=== PATIENT | male | born 1995 | race Caucasian/White ===

== ENCOUNTER 2024-02-22 20:24 | Observation (INO) | payer OTHER, SELFPAY ==
[2024-02-22 20:33] VITALS: BP 129/83; PULSE 92; RESP 16; TEMP 37; O2SAT 97; BMI 25.8
--- NOTE | 2024-02-22 21:36 | ED.ABDPAIN ---
HPI - Abdominal Pain General Time Seen by Provider: 21:42 Date Seen: 02/22/24 Chief Complaint: Abdominal Pain Stated Complaint: abdominal pain Time Seen by Provider: 02/22/24 21:36 Source: patient, family, RN notes reviewed and old records reviewed Mode of arrival: ambulatory Limitations: no limitations History of Present Illness HPI narrative: 28-year-old male who presents today with abdominal pain and diarrhea. Says he started feeling poorly 6 days ago with nausea and fatigue, 4 days ago developed diarrhea, took 1 0 any and then. Has continued to have diarrhea since then, as well as decreased appetite. Denies fever, reports generalized abdominal pain, denies cough, shortness of breath, sinus congestion. No known ill contacts. No blood in the stools. No history of irritable bowel syndrome or inflammatory bowel disorders. Related Data Home Medications ?Medication ?Instructions ?Recorded ?Confirmed No Known Home Medications 02/22/24 02/22/24 Allergies Allergy/AdvReac Type Severity Reaction Status Date / Time No Known Drug Allergies Allergy Verified 02/22/24 22:45 Exam Narrative: Exam Narrative: General: Well-developed and well-nourished, no acute distress Head: Atraumatic and normocephalic Eyes: Pupils are equal reactive, extraocular motions intact, conjunctiva clear ENT: External nose and ears are normal, posterior pharynx without erythema or exudate Neck: No midline cervical tenderness, full spontaneous range of motion the neck, trachea midline, no adenopathy Heart: Regular rate and rhythm no murmurs or thrills Lungs: Clear to auscultation bilaterally without wheezes or crackles Abdomen: Soft, nontender, nondistended with active bowel sounds Musculoskeletal: No tenderness, deformity, or edema Neurologic: Awake, alert, and oriented x3, no gross focal neurologic deficits, cranial nerves intact as tested Psych: Mood and affect are appropriate Skin: No rashes Const: Vital Signs, click to edit/add: Vital Signs - 24 hr 02/22/24 20:33 Temperature 98.6 F Pulse Rate [Pulse Oximeter] 92 Respiratory Rate 16 Blood Pressure [Ri ght Upper Arm] 129/83 Pulse Oximetry 97 Oxygen Delivery Me thod Room Air Course Course ED Course: Reviewed prior urgent care visit from May 2022 which was for bilateral cerumen impaction. Patient presents today with reported diarrhea as well as decreased appetite, no vomiting, no known ill contacts. No upper respiratory symptoms like cough or runny nose, no sore throat. Denies urinary symptoms. No blood in the stool. On exam patient is finally stable with no abdominal tenderness, specifically no right lower quadrant tenderness. Labs are ordered, fluids, Zofran, Toradol will be given and anticipate discharge. Consider CT scan abdomen pelvis or right upper quad ultrasound depending on lab results and clinical course. Reevaluation(s) Time of Reevaluation #1: 22:49 Reevaluation #1: Labs ordered and independently interpreted by me with leukocytosis, normal basic metabolic panel, normal hepatic panel, negative CRP, normal lipase. Because of the elevated white blood cell count abdominal pain, CT scan of the abdomen pelvis was ordered. This demonstrates a normal-appearing appendix, no acute infectious or inflammatory findings. Patient will be discharged with anticipatory instructions, Imodium as needed for diarrhea, and follow-up as needed. Patient was unable to produce a stool sample while in the emergency department. Time of Reevaluation #2: 23:21 Reevaluation #2: Reviewed radiology interpretation CT scan which agrees with my initial interpretation of enteritis with addition of 3 areas of enteroenteric intussusception with likely lymph node lead points. Discussed with Dr. Subramanian, general surgery. produce assistant back, she recommends keeping patient NPO, admit to hospitalist service and repeat labs in the morning. Will add lactate tonight. Time of Reevaluation #3: 00:43 Reevaluation #3: Delay in care due to critical patient in the department. Lactate 0.8, patient remains stable and could be admitted. 1:13 AM Repaged Horizon. Vital Signs Vital signs: Initial Vital Signs Temperature 98.6 F 02/22/24 20:33 Temperature Source Temporal Artery Scan 02/22/24 20:33 Pulse Rate 92 02/22/24 20:33 Respiratory Rate 16 02/22/24 20:33 Blood Pressure 129/83 02/22/24 20:33 Blood Pressure Mean 98 02/22/24 20:33 Blood Pressure Position Sitting 02/22/24 20:33 Pulse Oximetry 97 02/22/24 20:33 Oxygen Delivery Method Room Air 02/22/24 20:33 Vital Signs Temperature 98.6 F 02/22/24 20:33 Pulse Rate 92 02/22/24 20:33 Respiratory Rate 16 02/22/24 20:33 Blood Pressure 129/83 02/22/24 20:33 Pulse Oximetry 97 02/22/24 20:33 Oxygen Delivery Method Room Air 02/22/24 20:33 Temperature 98.6 F 02/22/24 20:33 Pulse Rate 92 02/22/24 20:33 Respiratory Rate 16 02/22/24 20:33 Blood Pressure 129/83 02/22/24 20:33 Pulse Oximetry 97 02/22/24 20:33 Oxygen Delivery Method Room Air 02/22/24 20:33 Medications Administered Medications: Discontinued Medications Generic Name Dose Route Start Last Admin Trade Name Freq PRN Reason Stop Dose Admin Sodium Chloride 1,000 mls @ 1,000 mls/hr 02/22/24 21:45 02/23/24 00:27 0.9 % Sodium Chloride 1000 Ml IV 02/22/24 22:44 Infused .Q1H BRETT Infusion Ketorolac Tromethamine 15 mg 02/22/24 21:44 02/22/24 22:00 Ketorolac 15 Mg/Ml Inj IVP 02/22/24 21:45 15 mg ONCE ONE Administration MDM - Abdominal Pain Lab Data Labs: Lab Results 02/22/24 02/22/24 Range/Units 00:35 21:50 WBC 14.46 H (4.50-11.00) K/uL RBC 5.33 (4.30-5.90) m/uL Hgb 15.3 (13.5-17.5) gm/dL Hct 43.1 (37.0-53.0) % MCV 81 (80-100) fL MCH 29 (26-34) pg MCHC 36 (32-36) gm/dL RDW Coeff of Caro 12.5 (11.5-15.5) % Plt Count 243 (140-440) K/uL Neut % (Auto) 78.1 H (42.0-72.0) % Lymph % (Auto) 13.6 L (20-44) % [place] % (Auto) 5.7 (0.0-11.0) % Eos % (Auto) 1.5 (0.0-7.0) % Baso % (Auto) 0.3 (0.0-3.0) % Neut # (Auto) 11.30 H (1.7-7.0) K/uL Lymph # (Auto) 2.00 (0.90-2.90) K/uL [place] # (Auto) 0.80 (0.00-0.90) K/UL Eos # (Auto) 0.20 (0.00-0.50) K/uL Baso # (Auto) 0.00 (0.00-0.30) K/uL Abs Immat Gran (auto) 0.10 (0.00-0.30) K/uL Imm/Tot Granulo (auto) 0.8 % Sodium 136 (135-149) mmol/L Potassium 3.7 (3.6-5.1) mmol/L Chloride 101 (96-114) mmol/L Carbon Dioxide 29 (20-32) mmol/L Anion Gap 6 L (7-15) mEq/L BUN 10 (5-24) mg/dL Creatinine 1.0 (0.5-1.5) mg/dL Estimated Creat Clear 122.87 Estimated GFR 106 ml/min Glucose 98 (60-115) mg/dL Lactate 0.8 (0.5-1.9) mmol/L Calcium 9.2 (8.4-10.6) mg/dL Total Bilirubin 1.4 (0.1-1.5) mg/dL Direct Bilirubin 0.2 (0.0-0.5) mg/dL AST 23 (12-35) U/L ALT 21 (4-50) U/L Alkaline Phosphatase 68 (40-150) U/L C-Reactive Protein < 0.5 L (0.5-1.0) mg/dL Total Protein 7.0 (6.0-8.3) g/dL Albumin 4.5 (3.3-5.0) g/dL Lipase 39 (23-300) U/L Discharge Plan Discharge Clinical Impression: Enteritis, Enteric intussusception Patient Disposition: Admitted As Observation Condition: Stable
[2024-02-22] MEDS: KETOROLAC 15 MG/ML inj IVP (22:00)
[2024-02-22] MEDS: 0.9 % SODIUM CHLORIDE 1000 ml 1,000 ML IV (22:00)
[2024-02-22 22:08] LABS: Basophils Percent Auto 0.3 % (0.0-3.0); Eosinophils Percent Auto 1.5 % (0.0-7.0); Hematocrit 43.1 % (37.0-53.0); Hemoglobin* 15.3 gm/dL (13.5-17.5); Immature Granulocytes Pct Auto 0.8 %; Lymphocytes Percent Auto 13.6 % (20-44); Mean Corpuscular HGB Conc 36 gm/dL (32-36); Mean Corpuscular Hemoglobin 29 pg (26-34); Mean Corpuscular Volume 81 fL (80-100); Monocytes Percent Auto 5.7 % (0.0-11.0); Neutrophils Percent Auto 78.1 % (42.0-72.0); Platelet Count* 243 K/uL (140-440); RDW Coefficient of Variation % 12.5 % (11.5-15.5); Red Blood Count 5.33 m/uL (4.30-5.90); White Blood Count* 14.46 K/uL (4.50-11.00)
[2024-02-22 22:10] LABS: Slide Review Reflex No
[2024-02-22 22:13] LABS: Albumin* 4.5 g/dL (3.3-5.0); Chloride* 101 mmol/L (96-114)
--- NOTE | 2024-02-22 22:13 | CRLHL7_ITS ---
For Patients: As a result of the 21st Century Cures Act, medical imaging exams and procedure reports are released immediately into your electronic medical record. You may view this report before your referring provider. If you have questions, please contact your health care provider. INDICATION: Abdominal pain, diarrhea, leukocytosis. TECHNIQUE: CT of the abdomen and pelvis acquired with 93 cc Isovue 370 IV contrast. Coronal and sagittal reconstructions. COMPARISON: None. FINDINGS: The liver, gallbladder, spleen, pancreas, and adrenal glands are negative. No biliary dilation. Hepatic and portal veins are patent. Symmetric enhancement of the kidneys. No hydronephrosis. Mildly prominent bilateral extrarenal pelves without ureteral dilation or obstructing urinary calculi. Mild circumferential bladder wall thickening. Nonenlarged prostate gland. No small bowel dilation. There are three separate segments of enteroenteric intussusception in the left abdomen (series 4 image 47). No obvious lead point mass. There is mild wall thickening of multiple distal small bowel loops, as well as more prominent wall thickening and mucosal hyperenhancement of a 5 cm segment of terminal ileum leading up to the ileocecal valve. Fluid in the proximal colon which can be seen with diarrhea. Negative appendix. No intraperitoneal free air or fluid. Numerous prominent mesenteric lymph nodes are likely reactive. The lung bases are clear. The bones are unremarkable. IMPRESSION: 1. Findings suggestive of a nonspecific enteritis, with prominent wall thickening of the terminal ileum. Consider outpatient GI consult to exclude underlying inflammatory bowel disease. 2. Three separate segments of enteroenteric intussusception in the left abdomen likely secondary to prominent mesenteric lymph nodes. 3. Fluid-filled proximal colon which can be seen with diarrhea. Please note that all CT scans at this facility use dose modulation, iterative reconstruction, and/or weight-based dosing when appropriate to reduce radiation dose to as low as reasonably achievable. Dictated by Ailin Perez MD @ 02/22/2024 11:15:44 PM (Electronically Signed)
[2024-02-22 22:14] LABS: Potassium* 3.7 mmol/L (3.6-5.1); Sodium* 136 mmol/L (135-149)
[2024-02-22 22:16] LABS: Est. Creatinine Clearance* 122.87; Estimated Glomerular Filt Rate 106 ml/min
[2024-02-22 22:17] LABS: Alanine Aminotransferase* 21 U/L (4-50); Alkaline Phosphatase* 68 U/L (40-150); Anion Gap 6 mEq/L (7-15); Aspartate Amino Transferase* 23 U/L (12-35); Bilirubin Direct* 0.2 mg/dL (0.0-0.5); Bilirubin Total* 1.4 mg/dL (0.1-1.5); Blood Urea Nitrogen* 10 mg/dL (5-24); Calcium* 9.2 mg/dL (8.4-10.6); Carbon Dioxide* 29 mmol/L (20-32); Glucose* 98 mg/dL (60-115); Lipase* 39 U/L (23-300)
[2024-02-22 22:43] LABS: C Reactive Protein* < 0.5 mg/dL (0.5-1.0)
[2024-02-23] VITALS (8 sets, daily range): BP systolic 95–121; BP diastolic 53–76; PULSE 65–86; RESP 16–18; TEMP 36.1–37.6; O2SAT 95–98; BMI 23.4
[2024-02-23 00:39] LABS: Lactate* 0.8 mmol/L (0.5-1.9)
--- NOTE | 2024-02-23 02:43 | W.PM.THH&P_ITS ---
Telehealth- H&P: HPI History of Present Illness Time Seen by Provider: 02:30 Date Seen: 02/23/24 Chief complaint: abdominal pain Narrative: Krishna Ji is seen as an Interactive Telehealth visit. Krishna Ji is a 28 year old male who is a 28-year-old male with no significant past medical history who presents to the hospital with complaints of abdominal pain. He has been experiencing diarrhea illness for 6 days. His 6 days is progressed to the point where he developed abdominal pain earlier today. He did not have any bloody diarrhea. He denies any nausea or vomiting. Patient then presented to the emergency room where he underwent laboratory evaluation. He was noted to have elevated white count with a left shift. This patient then subsequently underwent a CT scan of the abdomen which showed enteritis in the terminal ileum as well as areas of intussusception secondary to mesenteric lymphadenopathy. The case was discussed with on-call surgery who recommended hospitalization, IV fluids, n.p.o. and monitor. Review of Systems Status of ROS: Reports: 10 or more systems reviewed and unremarkable except as noted in History and below Const: Denies: fever, chills, change in weight, fatigue or night sweats GI: Reports: abdominal pain and diarrhea; Denies: nausea, vomiting, coffee grounds in vomit, excessive passing of gas or blood in stool Musculo: Denies: back pain Neuro: Denies: headache Psych: Denies: anxiety Endo: Denies: fatigue PFSH PFSH Social History How often do you have a drink containing alcohol: never AUDIT-C Alcohol total score: 0 Non-prescribed substance use: denies use Meds Home Medications and Allergies Home Medications ?Medication ?Instructions ?Recorded ?Confirmed ?Type No Known Home Medications 02/22/24 02/22/24 History Allergies Allergy/AdvReac Type Severity Reaction Status Date / Time No Known Drug Allergies Allergy Verified 02/22/24 22:45 Exam Narrative Exam Narrative: Physical Exam GENERAL: ?vital signs reviewed, well developed and nourished, in no distress HEENT: pupils are equal round and reactive to light, extraocular movements are grossly within normal limits and oral mucosa is moist. NECK: Supple without lymphadenopathy or thyromegaly according to nursing staff examination observation HEART: Regular rate and rhythm without any rubs, murmurs, or gallops. LUNGS: Clear to auscultation bilaterally with good air movement throughout ABDOMEN: Observation from nurse assisted exam, abdomen appears soft, nontender, bowel sounds are present. Patient does have mild tenderness and does have rebound tenderness in the RLQ EXTREMITIES: Strength and sensation is observed to be grossly within normal limits in the upper and lower extremities.? No focal strength deficit is observed. SKIN:? Observed warm and dry with color normal Const Vital Signs, click to edit/add: Vital Signs - 24 hr 02/22/24 20:33 02/23/24 02:00 Temperature 98.6 F 98.4 F Pulse Rate [Pulse Oximeter] 92 86 Respiratory Rate 16 16 Blood Pressure [Right Upper Arm] 129/83 121/76 Pulse Oximetry 97 98 Oxygen Delivery Method Room Air Room Air Common normals: apparent distress Exam limitations: no altered mental status HENMT Common normals: normocephalic Head and scalp: normocephalic Neck & C-Spine Common normals: no JVD Resp Common normals: normal respiratory effort Effort & inspection: able to speak in complete sentences Cardio Common normals: no JVD, regular rate and regular rhythm Rate: regular rate Rhythm: regular rhythm GI Common normals: Normal to inspection, nondistended, normoactive bowel sounds present and soft to palpation Palpation: soft, tender and rebound tenderness present; no guarding Common normals: CVA tenderness present Bladder/kidney exam: CVA tenderness Back & Pelvis Common normals: CVA tenderness Hospitalist - H&P: Result Labs Labs: Short CBC 02/22/24 Range/Units 21:50 WBC 14.46 H (4.50-11.00) K/uL Hgb 15.3 (13.5-17.5) gm/dL Hct 43.1 (37.0-53.0) % Plt Count 243 (140-440) K/uL BMP 02/22/24 21:50 Sodium 136 Potassium 3.7 Chloride 101 Carbon Dioxide 29 BUN 10 Creatinine 1.0 Glucose 98 Calcium 9.2 Liver Function 02/22/24 Range/Units 21:50 Total Bilirubin 1.4 (0.1-1.5) mg/dL Direct Bilirubin 0.2 (0.0-0.5) mg/dL AST 23 (12-35) U/L ALT 21 (4-50) U/L Alkaline Phosphatase 68 (40-150) U/L Albumin 4.5 (3.3-5.0) g/dL Assessment and Plan Assessment and plan (1) Enteric intussusception: Status: Acute (2) Enteritis: Status: Acute Plan 28-year-old male with no significant past medical history who presents to the [facility] with complaints of abdominal pain. He has been experiencing diarrhea illness for 6 days. His 6 days is progressed to the point where he developed abdominal pain earlier today. He did not have any bloody diarrhea. He denies any nausea or vomiting. Patient then presented to the emergency room where he underwent laboratory evaluation. He was noted to have elevated white count with a left shift. This patient then subsequently underwent a CT scan of the abdomen which showed enteritis in the terminal ileum as well as areas of intussusception secondary to mesenteric lymphadenopathy. The case was discussed with on-call surgery who recommended hospitalization, IV fluids, n.p.o. and monitor. Total Time Spent Total Time Spent: 30 minutes Telehealth: Statement Statement Telehealth Visit: Today's History and Physical is provided via interactive telehealth by Dante Presley MD.? Patient is located at [facility].? Provider is located at [facility].? Nursing staff assisted with the patient's exam. The visit being done today meets criteria for a telehealth visit and the patient or patient?s parent/guardian is aware the visit is a telehealth visit. Camera Start Time: 02:30 Camera End Time: 02:45
[2024-02-23] MEDS: 0.9 % SODIUM CHLORIDE 1000 ml 1,000 ML 125 ML IV ×4 (02:46→22:52)
--- NOTE | 2024-02-23 06:37 | PC.NURSE ---
Pt is alert and oriented x3. Pt is calm and receptive to care. Pt denies SOB, CP, nausea, and pain. Pt came in with increased abdominal pain that had started on 02/15. Pt comes from home where he lives with his parents. VSS. Fluids running at 125 mL. Indep. Lung sounds clear to auscultation. Active bowel sounds. S1 and S2 heard. Pt is NPO. NKA. ?
[2024-02-23 08:07] LABS: Basophils Absolute Auto 0.02 K/uL (0.00-0.30); Basophils Percent Auto 0.2 % (0.0-3.0); Eosinophils Absolute Auto 0.12 K/uL (0.00-0.50); Eosinophils Percent Auto 1.2 % (0.0-7.0); Hematocrit 40.3 % (37.0-53.0); Hemoglobin* 14.4 gm/dL (13.5-17.5); Immature Granulocytes Abs Auto 0.01 K/uL (0.00-0.30); Immature Granulocytes Pct Auto 0.1 %; Lymphocytes Percent Auto 14.6 % (20-44); Mean Corpuscular HGB Conc 36 gm/dL (32-36); Mean Corpuscular Hemoglobin 29 pg (26-34); Mean Corpuscular Volume 81 fL (80-100); Monocytes Percent Auto 7.3 % (0.0-11.0); Neutrophils Percent Auto 76.6 % (42.0-72.0); Platelet Count* 210 K/uL (140-440); RDW Coefficient of Variation % 12.5 % (11.5-15.5); Red Blood Count 4.98 m/uL (4.30-5.90); White Blood Count* 9.91 K/uL (4.50-11.00)
[2024-02-23 08:08] LABS: Slide Review Reflex No
[2024-02-23 08:19] LABS: Albumin* 3.8 g/dL (3.3-5.0)
[2024-02-23 08:20] LABS: Chloride* 107 mmol/L (96-114); Potassium* 3.9 mmol/L (3.6-5.1); Sodium* 136 mmol/L (135-149)
[2024-02-23 08:22] LABS: Anion Gap 7 mEq/L (7-15); Aspartate Amino Transferase* 19 U/L (12-35); Bilirubin Total* 1.4 mg/dL (0.1-1.5); Carbon Dioxide* 22 mmol/L (20-32); Creatinine* 0.9 mg/dL (0.5-1.5); Est. Creatinine Clearance* 148.66; Estimated Glomerular Filt Rate 121 ml/min; Total Protein* 6.3 g/dL (6.0-8.3)
[2024-02-23 08:23] LABS: Alanine Aminotransferase* 17 U/L (4-50); Alkaline Phosphatase* 59 U/L (40-150); Blood Urea Nitrogen* 9 mg/dL (5-24); Glucose* 97 mg/dL (60-115)
[2024-02-23 08:24] LABS: Calcium* 8.4 mg/dL (8.4-10.6)
--- NOTE | 2024-02-23 08:37 | PM.GSCN ---
History of Present Illness Consult details Date Seen: 02/23/24 Consult date: 02/23/24 Narrative: Patient presented to the emergency department last night for diffuse abdominal pain and diarrhea. He states that he had a little over a week of just feeling unwell, nausea and decrease in appetite. Four days ago he developed diarrhea. His abdominal pain has been throughout the abdomen and would seem to come and go. Workup was obtained while in the emergency department with leukocytosis (14) and CT scan demonstrating 3 separate areas of small bowel intussusception. There was also evidence of wall thickening and mesenteric lymphadenopathy consistent with an enteritis. He denies any fevers at home. He has never had anything like this before. No previous abdominal surgeries. Since being admitted his pain has improved. He has not had diarrhea since being here. No fevers. He feels like he could eat something this morning. Review of Systems Status of ROS: Reports: 10 or more systems reviewed and unremarkable except as noted in History and below PFSH [facility] Social History What is your current living situation?: I presently have a place to live Problems where you live: declined to answer Problems where you live details: N/A In the past 12 months, utilities in danger of being shut off: no In past 12 months, lack of transportation kept you from medical appts, meetings, work, or getting things needed for daily living: no In the past 12 mos, have been you worried that your food would run out before you had money to buy more?: never true In the past 12 mos, the food you bought just didn't last and you didn't have money to buy more?: never true Highest level of school completed/degree received: Associate degree: occupational, technical, vocational program Smoking Status: Never smoker Second hand tobacco smoke exposure: No How often do you have a drink containing alcohol: 2-3 times a week Alcohol type: beer Alcohol type details: Pt consumes alcohol on the weekends ranging from 5-10 drinks and has occasional 1-2 beers during the week How often do you have six or more drinks on one occasion: Weekly AUDIT-C Alcohol total score: 6 Non-prescribed substance use: denies use Caffeine: No How often does anyone, including family, friends and others, physically hurt you: never How often does anyone, including family, friends and others, insult or talk down to you: never How often does anyone, including family, friends and others, threaten you with harm: never How often does anyone, including family, friends and others, scream or curse at you: never service: No Meds Home Medications and Allergies Home Medications ?Medication ?Instructions ?Recorded ?Confirmed ?Type No Known Home Medications 02/22/24 02/22/24 History Allergies Allergy/AdvReac Type Severity Reaction Status Date / Time No Known Drug Allergies Allergy Verified 02/22/24 22:45 Exam Narrative: Exam Narrative: General: Alert and oriented, no acute distress. Nontoxic Respiratory: Equal breath rise bilaterally, maintained on room air CV: Well perfused Abdomen: Soft, mild tenderness to deep palpation with no guarding or rebound. Const: Vital Signs, click to edit/add: Vital Signs - 24 hr 02/22/24 20:33 02/23/24 02:00 02/23/24 02:26 Temperature 98.6 F 98.4 F 97.3 F L Pulse Rate [Pulse Oximeter] 92 86 85 Respiratory Rate 16 16 16 Blood Pressure [Le ft Arm] 119/68 Blood Pressure [Ri ght Upper Arm] 129/83 121/76 Pulse Oximetry 97 98 95 Oxygen Delivery Me thod Room Air Room Air Room Air 02/23/24 07:59 02/23/24 08:02 Temperature 99.7 F H Pulse Rate [Pulse Oximeter] 77 77 Respiratory Rate 18 18 Blood Pressure [Le ft Arm] 120/68 Blood Pressure [Ri ght Upper Arm] Pulse Oximetry 95 Oxygen Delivery Me thod Room Air Results Labs Labs: Abnormal lab results 02/22/24 02/23/24 Range/Units 21:50 08:00 WBC 14.46 H (4.50-11.00) K/uL Neut % (Auto) 78.1 H 76.6 H (42.0-72.0) % Lymph % (Auto) 13.6 L 14.6 L (20-44) % Neut # (Auto) 11.30 H 7.60 H (1.7-7.0) K/uL Anion Gap 6 L (7-15) mEq/L C-Reactive Protein < 0.5 L (0.5-1.0) mg/dL Diabetes panel 02/22/24 02/23/24 Range/Units 21:50 08:00 Sodium 136 136 (135-149) mmol/L Potassium 3.7 3.9 (3.6-5.1) mmol/L Chloride 101 107 (96-114) mmol/L Carbon Dioxide 29 22 (20-32) mmol/L BUN 10 9 (5-24) mg/dL Creatinine 1.0 0.9 (0.5-1.5) mg/dL Glucose 98 97 (60-115) mg/dL Calcium 9.2 8.4 (8.4-10.6) mg/dL AST 23 19 (12-35) U/L ALT 21 17 (4-50) U/L Alkaline Phosphatase 68 59 (40-150) U/L Total Protein 7.0 6.3 (6.0-8.3) g/dL Albumin 4.5 3.8 (3.3-5.0) g/dL Calcium panel 02/22/24 02/23/24 Range/Units 21:50 08:00 Calcium 9.2 8.4 (8.4-10.6) mg/dL Albumin 4.5 3.8 (3.3-5.0) g/dL Pituitary panel 02/22/24 02/23/24 Range/Units 21:50 08:00 Sodium 136 136 (135-149) mmol/L Potassium 3.7 3.9 (3.6-5.1) mmol/L Chloride 101 107 (96-114) mmol/L Carbon Dioxide 29 22 (20-32) mmol/L BUN 10 9 (5-24) mg/dL Creatinine 1.0 0.9 (0.5-1.5) mg/dL Glucose 98 97 (60-115) mg/dL Calcium 9.2 8.4 (8.4-10.6) mg/dL Adrenal panel 02/22/24 02/23/24 Range/Units 21:50 08:00 Sodium 136 136 (135-149) mmol/L Potassium 3.7 3.9 (3.6-5.1) mmol/L Chloride 101 107 (96-114) mmol/L Carbon Dioxide 29 22 (20-32) mmol/L BUN 10 9 (5-24) mg/dL Creatinine 1.0 0.9 (0.5-1.5) mg/dL Glucose 98 97 (60-115) mg/dL Calcium 9.2 8.4 (8.4-10.6) mg/dL Total Bilirubin 1.4 1.4 (0.1-1.5) mg/dL AST 23 19 (12-35) U/L ALT 21 17 (4-50) U/L Alkaline Phosphatase 68 59 (40-150) U/L Total Protein 7.0 6.3 (6.0-8.3) g/dL Albumin 4.5 3.8 (3.3-5.0) g/dL All other labs normal. Imaging Abdomen CT scan report/results: report reviewed and image reviewed Progress Note:A&P Assessment and plan (1) Enteric intussusception: Status: Acute Assessment and Plan: Patient is an otherwise healthy 28-year-old male who presents with small bowel enteritis. On CT imaging last night 3 separate areas of intussusception with bowel wall thickening and mesenteric lymphadenopathy. All areas of intussusception were present in the left upper quadrant. Recommendations were for observation overnight and re-evaluation in the morning. Patient is reporting improvement in his pain. A benign abdominal exam this morning with vital signs stable. His leukocytosis has resolved. Intussusception unlikely to be persistent given his improvement clinically. Okay for diet. Agree with stool cultures and management per hospitalist. Anticipate discharge later today. Please call with any clinical changes, questions or concerns. (2) Enteritis: Status: Acute
[2024-02-23 13:32] LABS: C.Difficile Negative (Negative); CDIFFEPI 027 PRESUMPTIVE NEGATIVE (Negative)
[2024-02-23] MEDS: LOPERAMIDE HCL 2 MG CAPSULE PO ×3 (14:19→22:52)
--- NOTE | 2024-02-23 14:40 | PM.IMPN1 ---
Progress Note: A&P Assessment and plan (1) Enteric intussusception: Status: Acute (2) Enteritis: Problem details: - improved, still having watery diarrhea - C diff negative, stool culture pending - Imodium, probiotics, bland diet, IV fluids - hemodynamically stable, possibly home tomorrow if continues to improve - appreciate input from General surgery, no surgical needs identified at this time Status: Acute Plan - per above - mom updated at bedside, questions answered Subjective Date Seen: 02/23/24 Interval history: Krishna was admitted to the hospital last night with a 4-5 day history of abdominal pain and nonbloody diarrhea. Admission CT revealed enteritis and 3 areas of intussusception. This morning, white blood count has improved and electrolytes remained stable. Krishna is tolerating broth with minimal nausea. Still having watery diarrhea (had 6-7 episodes between waking up and noon today). No blood in stool. No dizziness or lightheadedness. No medical history. No skin complaints, no arthralgias. No family history of GI illness. Only recent travel was to [place]. Exam Narrative: Exam Narrative: GEN: Alert HEENT: Normal external ears, EOMIs bilaterally, no scleral icterus CV: RRR, No concerning murmurs, rubs, or gallops R: LCTA bilaterally without concerning wheezing, rales, or rhonchi Ab: Soft, nontender, tolerates palpation, hyperactive bowel sounds Ext: wwp, no concerning edema Skin: No concerning skin lesions or rashes on exposed skin Neuro: No focal deficits, no resting tremor Psych: Appropriate Const: Vital Signs, click to edit/add: Vital Signs - 24 hr 02/22/24 20:33 02/23/24 02:00 02/23/24 02:26 Temperature 98.6 F 98.4 F 97.3 F L Pulse Rate [Pulse Oximeter] 92 86 85 Respiratory Rate 16 16 16 Blood Pressure [Le ft Arm] 119/68 Blood Pressure [Ri ght Upper Arm] 129/83 121/76 Pulse Oximetry 97 98 95 Oxygen Delivery Me thod Room Air Room Air Room Air 02/23/24 07:59 02/23/24 08:02 02/23/24 11:31 Temperature 99.7 F H 98.7 F Pulse Rate [Pulse Oximeter] 77 77 66 Respiratory Rate 18 18 18 Blood Pressure [Le ft Arm] 120/68 108/67 Blood Pressure [Or ght Upper Arm] Pulse Oximetry 95 95 Oxygen Delivery Me thod Room Air Room Air Labs Labs: Laboratory Results - last 24 hr 02/22/24 02/22/24 02/23/24 00:35 21:50 08:00 WBC 14.46 H 9.91 RBC 5.33 4.98 Hgb 15.3 14.4 Hct 43.1 40.3 MCV 81 81 MCH 29 29 MCHC 36 36 RDW Coeff of Caro 12.5 12.5 Plt Count 243 210 Neut % (Auto) 78.1 H 76.6 H Lymph % (Auto) 13.6 L 14.6 L [place] % (Auto) 5.7 7.3 Eos % (Auto) 1.5 1.2 Baso % (Auto) 0.3 0.2 Neut # (Auto) 11.30 H 7.60 H Lymph # (Auto) 2.00 1.40 [place] # (Auto) 0.80 0.70 Eos # (Auto) 0.20 0.12 Baso # (Auto) 0.00 0.02 Abs Immat Gran (auto) 0.10 0.01 Imm/Tot Granulo (auto) 0.8 0.1 Sodium 136 136 Potassium 3.7 3.9 Chloride 101 107 Carbon Dioxide 29 22 Anion Gap 6 L 7 BUN 10 9 Creatinine 1.0 0.9 Estimated Creat Clear 122.87 148.66 Estimated GFR 106 121 Glucose 98 97 Lactate 0.8 Calcium 9.2 8.4 Total Bilirubin 1.4 1.4 Direct Bilirubin 0.2 AST 23 19 ALT 21 17 Alkaline Phosphatase 68 59 C-Reactive Protein < 0.5 L Total Protein 7.0 6.3 Albumin 4.5 3.8 Lipase 39 Stl C. diff Tox B Gene Stl C. diff [id number]-[id number] 02/23/24 11:15 WBC RBC Hgb Hct MCV MCH MCHC RDW Coeff of Caro Plt Count Neut % (Auto) Lymph % (Auto) [place] % (Auto) Eos % (Auto) Baso % (Auto) Neut # (Auto) Lymph # (Auto) [place] # (Auto) Eos # (Auto) Baso # (Auto) Abs Immat Gran (auto) Imm/Tot Granulo (auto) Sodium Potassium Chloride Carbon Dioxide Anion Gap BUN Creatinine Estimated Creat Clear Estimated GFR Glucose Lactate Calcium Total Bilirubin Direct Bilirubin AST ALT Alkaline Phosphatase C-Reactive Protein Total Protein Albumin Lipase Stl C. diff Tox B Gene Negative Stl C. diff [id number] PRESUMPTIVE NEGATIVE
--- NOTE | 2024-02-23 14:51 | PC.NURSE ---
End of shift: Patient pleasant and cooperative, A&O. VSS, afebrile. Patient reports mild pain in his abdomen this shift, declines PRN medication. Patient has had multiple loose stools this shift, gave PRN medication, see MAR. Independent in room. Regular diet - patient only had broth this shift, tolerated it well.
[2024-02-23] MEDS: LACTOBACILLUS ACIDOPHILUS 1 TABLET 2 TAB PO (17:36)
[2024-02-23] MEDS: ENOXAPARIN 40 MG/0.4 ML INJ SUBCUT (20:12)
--- NOTE | 2024-02-23 23:22 | PC.NURSE ---
End of Shift: Patient pleasant and cooperative. Afebrile. Rating pain in abdomen 0-1/10. Continues to have loose stool, PRN Loperamide given. Tolerating broth and yogurt with no nausea.
[2024-02-24 03:00] VITALS: BP 92/49; PULSE 72; RESP 14; TEMP 36.4; O2SAT 97
--- NOTE | 2024-02-24 06:00 | PC.NURSE ---
End of shift [id number]: Denies any pain or shortness of breath. Abdomen soft, non tender to palpations. Denies any nausea or vomiting. Bowel sounds in upper quadrants distant sounding but active, lower quadrants hyperactive. Reports 1 large loose stool, PRN imodium given. Independent with ambulation.
[2024-02-24 06:30] LABS: Chloride* 110 mmol/L (96-114)
[2024-02-24 06:31] LABS: Potassium* 3.9 mmol/L (3.6-5.1); Sodium* 138 mmol/L (135-149)
[2024-02-24 06:33] LABS: Creatinine* 0.9 mg/dL (0.5-1.5); Est. Creatinine Clearance* 148.66; Estimated Glomerular Filt Rate 121 ml/min
[2024-02-24 06:34] LABS: Anion Gap 5 mEq/L (7-15); Blood Urea Nitrogen* 6 mg/dL (5-24); Calcium* 8.4 mg/dL (8.4-10.6); Carbon Dioxide* 23 mmol/L (20-32); Glucose* 71 mg/dL (60-115)
[2024-02-24 06:38] LABS: Basophils Absolute Auto 0.02 K/uL (0.00-0.30); Basophils Percent Auto 0.4 % (0.0-3.0); Eosinophils Absolute Auto 0.23 K/uL (0.00-0.50); Eosinophils Percent Auto 4.3 % (0.0-7.0); Hematocrit 36.9 % (37.0-53.0); Hemoglobin* 13.1 gm/dL (13.5-17.5); Immature Granulocytes Abs Auto 0.01 K/uL (0.00-0.30); Immature Granulocytes Pct Auto 0.2 %; Mean Corpuscular HGB Conc 36 gm/dL (32-36); Mean Corpuscular Hemoglobin 29 pg (26-34); Mean Corpuscular Volume 83 fL (80-100); Monocytes Percent Auto 10.4 % (0.0-11.0); Neutrophils Percent Auto 37.7 % (42.0-72.0); Platelet Count* 223 K/uL (140-440); RDW Coefficient of Variation % 12.6 % (11.5-15.5); Red Blood Count 4.47 m/uL (4.30-5.90); White Blood Count* 5.36 K/uL (4.50-11.00)
[2024-02-24 07:00] VITALS: BP 110/72; PULSE 60; RESP 14; TEMP 36.4; O2SAT 96
[2024-02-24 07:08] LABS: Slide Review Reflex No
[2024-02-24] MEDS: LACTOBACILLUS ACIDOPHILUS 1 TABLET 2 TAB PO (08:00)
[2024-02-24] MEDS: 0.9 % SODIUM CHLORIDE 1000 ml 1,000 ML 125 ML IV (08:01)
[2024-02-24 08:46] VITALS: BP 104/62; BP 107/72; BP 116/72; PULSE 60; PULSE 70; PULSE 85
[2024-02-24] MEDS: LOPERAMIDE HCL 2 MG CAPSULE PO (09:59)
--- NOTE | 2024-02-24 14:21 | PC.NURSE ---
Shift Summary: Patient pleasant and cooperative. Up independently. Tolerated breakfast, no pain or nausea, had x1 loose BM after eating, PRN imodium given. Discharge instructions given, discussed diet and worsening symptoms. IV removed with catheter intact. Discharged @ 1224, mom picked up.
--- NOTE | 2024-02-24 14:34 | P.DS_ITS ---
DS: Providers Provider Date Seen: 02/24/24 Date of admission: 02/23/24 02:09 Primary care physician: Not a Local Provider Admitting Clinician: Dante Presley MD Attending Physician on discharge: [facility]: 02/24/24 DS: Diagnosis Discharge Diagnosis (1) Enteritis: Status: Acute Problem details: - improved, still having watery diarrhea - C diff negative, stool culture pending - Imodium, probiotics, bland diet, IV fluids - hemodynamically stable, possibly home tomorrow if continues to improve - appreciate input from General surgery, no surgical needs identified at this time (2) Enteric intussusception: Status: Acute Problem details: - resolved with treatment above DS: Summary Hospital Course Hospital Course: FINAL DIAGNOSIS/FOLLOW UP ISSUES: Gastroenteritis; intussusception seen on CT. Resolved with conservative care. No surgical intervention. Stool culture pending at discharge. BRIEF HOSPITAL COURSE: Patient was admitted overnight. Synopsis of acute inpatient issues are outlined above. Chronic medical conditions with notable findings outlined above. DISCHARGE MEDICATIONS: See Reconciled list - SIGNIFICANT CHANGES: P.r.n. Imodium Specific instructions to the patient and follow-up are outlined below. REVIEW OF SYSTEMS No new chest pain or dyspnea Pain controlled No voiding difficulties Tolerating diet challenge PHYSICAL EXAM: CONSTITUTIONAL: Alert, awake. No specific pain reported. Hungry. VITAL SIGNS: see record. HEENT: Normocephalic, atraumatic. PERRL, EOMI, conjunctivae pink, no scleral icterus. Ears and nose externally normal. Pharynx normal. NECK: No JVD. No carotid bruit, no thyromegaly, no adenopathy. CHEST: Clear to auscultation bilaterally. HEART: S1 and S2 normal. Edema ABDOMEN: Soft, nontender. Normal bowel sounds. MUSCULOSKELETAL: No gross joint deformity or swelling. NEURO: Cranial nerves intact. Grossly intact. No asymmetric findings. SKIN: No rashes, petechiae, concerning changes PSYCHIATRIC: Mood euthymic. DISPOSITION: Home with family Time spent on discharge 37 minutes. Status at Discharge Functional status at discharge: independent ambulation Overall status at discharge: patient is progressing back to baseline Time Spent with Patient Time attestation: Total time spent providing and/or coordinating discharge services: Exam Const: Vital Signs, click to edit/add: Vital Signs - 24 hr 07/16/24 15:00 02/23/24 15:00 02/23/24 19:00 Temperature 98.1 F 97.4 F L Pulse Rate [Pulse Oximeter] 71 71 68 Pulse Rate [orthos tatic lying Pulse Oximeter] Pulse Rate [orthos tatic sitting Puls e Oximeter] Pulse Rate [orthos tatic standing Pul se Oximeter] Respiratory Rate 16 16 16 Blood Pressure [Le ft Arm] 111/71 115/71 Blood Pressure [or thostatic lying Le ft Arm] Blood Pressure [or thostatic sitting Left Arm] Blood Pressure [or thostatic standing Left Arm] Pulse Oximetry 96 96 Oxygen Delivery Me thod Room Air Room Air 02/23/24 23:00 02/23/24 23:00 02/24/24 03:00 Temperature 97.0 F L 97.5 F L Pulse Rate [Pulse Oximeter] 65 65 72 Pulse Rate [orthos tatic lying Pulse Oximeter] Pulse Rate [orthos tatic sitting Puls e Oximeter] Pulse Rate [orthos tatic standing Pul se Oximeter] Respiratory Rate 16 16 14 Blood Pressure [Le ft Arm] 95/53 L 92/49 L Blood Pressure [or thostatic lying Le ft Arm] Blood Pressure [or thostatic sitting Left Arm] Blood Pressure [or thostatic standing Left Arm] Pulse Oximetry 97 97 Oxygen Delivery Me thod Room Air Room Air 02/24/24 07:00 02/24/24 08:46 Temperature 97.6 F Pulse Rate [Pulse Oximeter] 60 Pulse Rate [orthos tatic lying Pulse Oximeter] 60 Pulse Rate [orthos tatic sitting Puls e Oximeter] 70 Pulse Rate [orthos tatic standing Pul se Oximeter] 85 Respiratory Rate 14 Blood Pressure [Le ft Arm] 110/72 Blood Pressure [or thostatic lying Le ft Arm] 104/62 Blood Pressure [or thostatic sitting Left Arm] 107/72 Blood Pressure [or thostatic standing Left Arm] 116/72 Pulse Oximetry 96 Oxygen Delivery Ms thod Room Air DS: Data Data Completed and Pending Labs on day of discharge: Labs from last 24 hours 02/24/24 05:45 WBC 5.36 RBC 4.47 Hgb 13.1 L Hct 36.9 L MCV 83 MCH 29 MCHC 36 RDW Coeff of Caro 12.6 Plt Count 223 Neut % (Auto) 37.7 L Lymph % (Auto) 47.0 H [place] % (Auto) 10.4 Eos % (Auto) 4.3 Baso % (Auto) 0.4 Neut # (Auto) 2.00 Lymph # (Auto) 2.50 [place] # (Auto) 0.60 Eos # (Auto) 0.23 Baso # (Auto) 0.02 Abs Immat Gran (auto) 0.01 Imm/Tot Granulo (auto) 0.2 Sodium 138 Potassium 3.9 Chloride 110 Carbon Dioxide 23 Anion Gap 5 L BUN 6 Creatinine 0.9 Estimated Creat Clear 148.66 Estimated GFR 121 Glucose 71 Calcium 8.4 Discharge Plan Discharge Disposition: Home w/ Parent or Adult Date of Admission: 02/23/24 02:09 Attending Provider on Discharge: Eleonora Rivera Primary Care Provider: Provider,Not a Local Condition: Stable Anticipated Discharge Date/Time: 02/24/24 09:40 Discharge Medications: New loperamide [Imodium A-D] 2 mg tablet 2 mg PO Q6H PRN (Reason: loose stool) Qty: 20 0RF Discharge Orders: Discharge Order (Routine); Ordered 02/24/24 Ordered By: Eleonora Rivera Patient Education: Loperamide (By mouth), Acute Diarrhea (ED), Enteritis (ED) Additional Instructions: Take Imodium as needed for diarrhea Tylenol or ibuprofen as needed for pain Activity Level: Activity as Tolerated Discharge Diet: Regular [facility]: [facility]
== END 2024-02-24 12:24 | disposition home or self-care (01) ==
LOC: ED 23:59 → MEDSURG 02-23 02:11
PROVIDERS: Family Medicine; Admitting Provider Student in an Organized Health Care Education/Training Program; Emergency Provider Family Medicine; Visit Provider Student in an Organized Health Care Education/Training Program
DX: K52.9 Noninfective gastroenteritis and colitis, unspecified (principal); K56.1 Intussusception; I88.0 Nonspecific mesenteric lymphadenitis; D72.829 Elevated white blood cell count, unspecified; R11.0 Nausea
CPT/HCPCS: 36415; 74177; 80048; 80053; 80076; 83605; 83690; 85025; 86140; 87045; 87046; 87427; 87493; 96361; 96372; 96374; 99285; A9270; G0378; J1650; J1885; J7030; Q9967